=== PATIENT | female | born 1970 | race Caucasian/White ===

== ENCOUNTER 2018-04-25 13:28 | Inpatient (IN) | payer BC ==
[~2018-04-25 13:28] MED LIST: ISOVUE-370 76%-LOCM 1 ML ONE
[2018-04-25] MEDS ORDERED: Potassium Chloride 20 MEQ/100 ML PREMIX BAG ONE ×2 (14:44→21:57)
[2018-04-25] MEDS ORDERED: Morphine 4 MG/ML VIAL ONE ×2 (15:17→19:44)
[2018-04-25] MEDS ORDERED: Furosemide 20 MG/2 ML VIAL SLOW IVP SCH (16:45)
[2018-04-25] MEDS ORDERED: Morphine 2 MG/ML SYRINGE SLOW IVP PRN (16:46)
[2018-04-25] MEDS ORDERED: Ondansetron PF 4 MG/2 ML Vial IVP PRN (16:48)
[2018-04-25] MEDS ORDERED: Ondansetron ODT 4 MG TAB PO PRN (16:48)
[2018-04-25] MEDS ORDERED: Guaifenesin DM 100-10/5 ML UDCUP PO PRN (16:48)
[2018-04-25 17:08] LABS: Pregnancy Test - Urine (BHCG) Negative (Negative); Pregu Control Background? CLEAR/WHITE (CLR/WHITE); Pregu Control Bar Appear? YES (CONTROL BAR); Specific Gravity 1.015 (1.002-1.036)
--- NOTE | 2018-04-25 18:53 | HP ---
CHIEF COMPLAINT: Shortness of breath and abdominal pain. HISTORY OF PRESENT ILLNESS: Ms. Tan is a pleasant 47-year-old woman, transferred from [place], where she presented with increased shortness of breath and weakness for the last 3 days. Recently diagnosed with metastatic lung cancer to the liver 3 weeks [address] Lovett, and is awaiting paracentesis, liver bx and lung bx. Recently placed on "water tablets." However, the patient has not yet started it. CXR in the ED shows a right basilar infiltrate and small right pleural effusion. WCC normal. Has not been started on IV antibiotics as felt to have fluid due to cancer rather than infectious process. Morphine given due to abdominal pain. K+ 2.2, and replaced with 40 mEq of KCl. Patient having difficulty swallowing since yesterday. D-dimer elevated. LFTs are elevated and the direct bilirubin is slightly raised at 0.4. Her BNP is 563.6 and troponin 0.042. She was diagnosed after presenting with back pain and spine xrays showed an abnormal liver. CT imaging of the chest and abdomen, which revealed a 4 cm right lung mass and numerous liver lesions. REVIEW OF SYSTEMS: She denies having any fevers, chills, or sweats, but has felt generally unwell for the last week with increasing shortness of breath and orthopnea for the last 3 days. She has had reduced appetite. Denies having any nausea or vomiting. She has had abdominal discomfort and has felt bloated. She has noted bilateral lower leg swelling and pain. She reports having issues with constipation, which she attributed to decreased oral intake. Denies any diarrhea or melena. She is passing gas. Denies having any urinary symptoms such as dysuria , hematuria, urgency, or frequency. No headaches or dizziness. No rash or other skin changes. All other review of systems are negative. PAST MEDICAL HISTORY: 1. New presumed lung cancer with metastasis to the liver. 2. Depression. bed bug exterminator smoker. Previous drug user. 3. Anxiety. 4. Bipolar disorder. 5. Depression. 6. Schizophrenia. PAST SURGICAL HISTORY: Bilateral cataract surgery. ALLERGIES: NO KNOWN DRUG ALLERGIES. CURRENT MEDICATIONS: 1. Latuda 120 mg p.o. daily. 2. Viibryd 10 mg p.o. daily. 3. Propranolol 20 mg p.o. 3 times a day. 4. Perphenazine 4 mg p.o. t.i.d. 5. Alprazolam 0.25 mg p.o. p.r.n. 6. Tylenol with codeine 1 tablet p.o. p.r.n. 7. Bupropion 300 mg p.o. daily. 8. Trazodone 50 mg p.o. daily. 9. Spironolactone 50 mg p.o. daily. PHYSICAL EXAMINATION: GENERAL: The patient appears fatigued, but in no acute distress. Well developed and well nourished. VITAL SIGNS: Temperature 98.6, pulse 75, respirations 15, O2 saturation 97% on 2 L of oxygen per nasal cannula, and blood pressure 145/80. HEENT: Normocephalic and atraumatic. Pupils are equal, round, and reactive to light. Sclerae are without any icterus. Oropharynx is clear. NECK: Supple. LUNGS: With mild inspiratory wheeze in the right upper lung and reduced breath sounds at the bases bilaterally. CARDIAC: Regular rate and rhythm. ABDOMEN: Soft, mild distention, with diffuse discomfort on palpation. Increased discomfort with palpation of the right upper quadrant. Normal bowel sounds. No rigidity or guarding. EXTREMITIES: No swelling or edema. She did have calf tenderness bilaterally. NEUROLOGIC: Alert and oriented x3. SKIN: Without rash or jaundice. LABORATORY DATA: White blood count 5.9, hemoglobin 11.5, hematocrit 32.7, and platelets 84. PT 14.6, INR 1.1, and PTT 28.1. D-dimer 1.82. Sodium 146, potassium 2.2, anion gap 21, carbon dioxide 43, BUN 21, creatinine 1.03, and GFR 57. Lactic acid 1.4. Phosphorus 1.8, magnesium 1.6, calcium 10.1, direct bilirubin 0.4, total bilirubin 3.6, CK 175, AST 104, ALT 68, alkaline phosphatase 927, ammonia 46, CK -MB 4.9, and troponin 0.042. BNP 563.6. Lipase 72. Albumin 3.8. Urinalysis notable for trace ketones, 46 squamous epithelial cells, 1+ bacteria , and 7 to 10 hyaline casts. Plasma alcohol less than 10. IMAGING DATA: Chest x-ray notable for cardiac silhouette magnified and upper limits of normal in size. Pulmonary vasculature is unremarkable. Ill-defined opacity at the right lung base that obscures the lateral margin of the right hemidiaphragm with blunting of the right lateral costophrenic angle. Left lung clear. No evidence of pneumothorax. IMPRESSION AND PLAN: Ms. Tan is a pleasant 47-year-old woman, who is being admitted for management of the followin. Shortness of breath. Currently on 2 L of oxygen with a saturation of 97%. She is not normally on oxygen at home. Given the history of malignancy and elevated D- dimer as well as bilateral calf tenderness, Chest CTA requested. We will obtain an echo and we will start her on Lasix 20 mg IV daily. A consult has been placed with Pulmonology given her new right lung mass and changes concerning for pneumonitis on the chest x-ray. DuoNebs have been ordered. We will continue to monitor her O2 saturations. 2. Abdominal pain. Monitor LFTs and continue morphine 2 mg IV q.4 hours for pain. Due for liver biopsy early this upcoming week as well as a therapeutic and diagnostic paracentesis. We have placed a consultation with Gastroenterology. 3. Hypokalemia. She has been given potassium chloride 40 mEq IV in the ED. We will give an additional 40 mEq and continue to monitor her potassium. She is being admitted to telemetry. 4. Constipation. We will start the patient on MiraLAX. At this time, there are no signs or symptoms concerning for any obstruction. 5. Bipolar/depression. We will resume her home medications. 6. Lower extremity calf tenderness. As mentioned above, D-dimer was positive and the patient is awaiting CT chest angiogram. We will also obtain bilateral venous Doppler. 7. Decreased appetite. We have requested a dietitian consult. 8. Dysphagia. The patient mentioned one episode of choking on food as well as hoarseness that has developed in the last day. A bedside dysphagia screening has been requested. Of note, the patient is currently in the process of discussing advanced directives with her . She has indicated that he would be her decision maker. The patient would benefit from a Palliative Care consult given the new cancer diagnosis, complex decision-making, and goals of therapy once diagnosis has been established. The patient's case was discussed with Dr. Israel, who agrees with the plan of care as described above. Job ID: [id number] [facility]
--- NOTE | 2018-04-25 18:54 | CT ---
CTA CHEST 04/25/18 HISTORY: Elevated D-dimer, shortness of breath. Contrast enhanced CTA chest performed. 2D and 3D reconstructed images performed. The left hepatic lobe is markedly enlarged. There is some diffuse heterogeneity in the hepatic parenc hyma. This may represent some nodularity or possible diffuse infiltrative process. Correlate with noelle ctive MRI of liver. This may be normal or may represent diffuse infiltrative hepatic process. There is a small perihepatic amount of free fluid. There is interval development of a small right sided pleural effusion. There is a large right hilar mass measuring 4.7 x 5.3 cm enveloping the right lower lobe pulmonary ar florentino and right hilum. The mass extends and/or involves the subcarinal region and paratracheal area as well as the aortopulmonary window. This is concerning for extensive mediastinal metastatic disease. There is also some areas of newly developed consolidation relative to the previous CT involving the l ateral aspect of the right middle lobe. No evidence of filling defects seen in the pulmonary arteries to suggest pulmonary emboli. IMPRESSION: 1. Extensive right hilar mass with subcarinal, peritracheal and aortopulmonary window lymphadeno jacqui. 2. Heterogeneity seen in the liver with asymmetrically enlarged left hepatic lobe with asymmetri valente enlarged left hepatic lobe. Diffuse infiltrative hepatic process cannot be excluded. POS: LUDIN
[2018-04-25] MEDS ORDERED: LATUDA 60 MG PO SCH (21:00)
--- NOTE | 2018-04-25 21:37 | ULT ---
BILATERAL LOWER EXTREMITY VENOUS DOPPLER 04/25/18 HISTORY: Bilateral lower extremity swelling and calf tenderness. Multiple longitudinal and transverse images of the right and left lower extremity venous systems are obtained using a multihertz linear array transducer. Real time, color flow and spectral waveform dopp ler analysis demonstrates no evidence of acute or old clots seen in the right or left common femoral, superficial femoral, femora profunda, popliteal, posterior tibial vein, post trifurcation veins and right and left greater saphenous veins. IMPRESSION: No evidence of right or left lower extremity deep venous thrombosis. POS: ELLEN
[2018-04-25 21:55] LABS: Actual Bicarbonate (HCO3a) 43.4 mEq/L (22-28); Analyzer IN Cardio ER; Base Excess (BEa) 16.8 mEq/L (-2.0 to +3.0); Calcium, Ionized 1.13 mmol/L (1.12-1.30); Carboxyhemoglobin (COHb) 0.6 gm% (0.0-3.0); O2 Tension (PaO2) 94.5 mmHg (80.0-100.0); Potassium - ABG Lab 2.21 mmol/L (3.70-5.30); pH, Arterial 7.45 (7.35-7.45)
[2018-04-25 22:06] LABS: CO2 Tension 63.5 mmHg (35.0-45.0)
[2018-04-25 22:07] LABS: ALV-art Gradient 25.765 (0-20); Puncture Site RBA
[2018-04-25 22:22] LABS: BUN (Urea Nitrogen) 18 mg/dL (7.0-18.7); Calc. Creatinine Clearance 0 mL/min (70-130); Estimated GFR-MDRD 67
[2018-04-25 22:23] LABS: Calcium 9.9 mg/dL (7.8-10.44); Glucose 148 mg/dL (70-105); Magnesium 2.2 mg/dL (1.6-2.6)
[2018-04-25 22:27] LABS: Potassium 2.2 mmol/L (3.5-5.1)
[2018-04-25 22:31] LABS: Anion Gap 22 mmol/L (10-20); Carbon Dioxide 37 mmol/L (22-29); Chloride 88 mmol/L (98-107); Sodium 145 mmol/L (136-145)
[2018-04-26] MEDS ORDERED: Famotidine/PF 20 mg/2ml Vial ONE (00:20)
[2018-04-26] MEDS ORDERED: Potassium Chloride 20 MEQ/100 ML PREMIX BAG ONE ×2 (00:22→11:40)
[2018-04-26 04:26] LABS: ALT (SGPT) 59 U/L (8-55); AST (SGOT) 97 U/L (5-34); Albumin 3.6 g/dL (3.5-5.0); Alkaline Phosphatase 757 U/L (40-150); BUN (Urea Nitrogen) 18 mg/dL (7.0-18.7); Bilirubin, Total 3.9 mg/dL (0.2-1.2); Calc. Creatinine Clearance 0 mL/min (70-130); Calcium 10.4 mg/dL (7.8-10.44); Estimated GFR-MDRD 74; Globulin 2.6 g/dL (2.4-3.5); Glucose 124 mg/dL (70-105); Protein, Total 6.2 g/dL (6.0-8.3)
[2018-04-26] MEDS ORDERED: Morphine 2 MG/ML SYRINGE ONE (04:34)
[2018-04-26 04:37] LABS: Anion Gap 21 mmol/L (10-20); Carbon Dioxide 38 mmol/L (22-29); Chloride 91 mmol/L (98-107); Sodium 147 mmol/L (136-145)
[2018-04-26 04:50] LABS: Potassium 2.9 mmol/L (3.5-5.1)
[2018-04-26 05:36] LABS: #Lymphocytes 0.8 thou/uL (1.20-3.40); #Monocytes 0.2 thou/uL (0.11-0.59); #Neutrophils 3.2 thou/uL (1.40-6.50); %Basophils 0.2 % (0.0-1.0); %Eosinophils 0.7 % (0.0-10.0); %Lymphocytes 19.7 % (21.0-51.0); %Monocytes 4.4 % (0.0-10.0); %Neutrophils 75.1 % (42.0-75.0); Hemoglobin 10.4 g/dL (12.0-16.0); MDiff Complete? YES; Mean Corpuscular HGB CONC 31.5 g/dL (32.0-36.0); Mean Corpuscular Hemoglobin 31.3 pg (27.0-31.0); Mean Corpuscular Volume 99.6 fL (78.0-98.0); Mean Platelet Volume 8.9 fL (7.4-10.4); Platelet Count 77 thou/uL (130-400); Platelet Morphology Comment Appears Decreased; RBC Distribution Width 14.6 % (11.5-14.5); Red Blood Cell (RBC) Count 3.33 mill/uL (4.20-5.40); Stomatocytes SLIGHT = 2-5 cells (100X) (0-1/hpf); White Blood Cell (WBC) Count 4.2 thou/uL (4.8-10.8)
[2018-04-26 08:04] VITALS: BMI 24.3
[2018-04-26] MEDS ORDERED: Furosemide 20 MG/2 ML VIAL SLOW IVP SCH (09:00)
[2018-04-26] MEDS ORDERED: Ketorolac Tromethamine 30 MG/ML VIAL IVP PRN (09:44)
--- NOTE | 2018-04-26 09:46 | PDOC.PN ---
- Subjective Encounter Start Date: 04/26/18 Encounter Start Time: 09:00 -: old records requested/rev pt is c/o pain diffuse, she is getting echo, no family bedside, pt is appears confused, vitals stable - Objective MAR Reviewed: Yes Vital Signs & Weight: Vital Signs (12 hours) Pulse Resp Pulse Ox 04/26/18 07:03 99 04/26/18 07:00 105 H 34 H 99 Weight Weight 128 lb 11.999 oz Result Diagrams: 04/26/18 03:51 04/26/18 03:51 Radiology Reviewed by me: Yes (CTA noted) EKG Reviewed by me: Yes (nsr) Phys Exam - Physical Examination Constitutional: NAD HEENT: PERRLA, moist MMs, sclera anicteric Neck: no JVD, supple Respiratory: no wheezing, no rales, no rhonchi Cardiovascular: RRR, no significant murmur, no rub Gastrointestinal: soft, no distention, positive bowel sounds Musculoskeletal: no edema, pulses present Neurological: non-focal, moves all 4 limbs Lymphatic: no nodes Psychiatric: normal affect Skin: no rash, normal turgor Dx/Plan (1) Acute respiratory failure with hypoxia and hypercapnia Code(s): J96.01 - ACUTE RESPIRATORY FAILURE WITH HYPOXIA; J96.02 - ACUTE RESPIRATORY FAILURE WITH HYPERCAPNIA Status: Acute (2) Abnormal LFTs Code(s): R94.5 - ABNORMAL RESULTS OF LIVER FUNCTION STUDIES Status: Acute (3) Hypokalemia Code(s): E87.6 - HYPOKALEMIA Status: Acute (4) Metastatic primary lung cancer Code(s): C34.90 - MALIGNANT NEOPLASM OF UNSP PART OF UNSP BRONCHUS OR LUNG Status: Acute (5) Pancytopenia Code(s): D61.818 - OTHER PANCYTOPENIA Status: Acute (6) Anxiety and depression Code(s): F41.9 - ANXIETY DISORDER, UNSPECIFIED; F32.9 - MAJOR DEPRESSIVE DISORDER, SINGLE EPISODE, UNSPECIFIED Status: Chronic (7) Hypertension Code(s): I10 - ESSENTIAL (PRIMARY) HYPERTENSION Status: Chronic (8) Tobacco abuse Code(s): Z72.0 - TOBACCO USE Status: Chronic - Plan cont current plan of care * will replace potassium * continue respiratory therapy * pulmonary consulted * will consult oncology for lung cancer * monitor labs * medication reviewed as below * symptomatic treatment * check B12, folate and start oral folic acid and vitamin B12 * follow on echo result * will update family. Review of Systems - Review of Systems Eyes: negative: Pain, Vision Change, Conjunctivae Inflammation, Eyelid Inflammation, Redness, Other ENT: negative: Ear Pain, Ear Discharge, Nose Pain, Nose Discharge, Nose Congestion, Mouth Pain, Mouth Swelling, Throat Pain, Throat Swelling, Other Respiratory: negative: Cough, Dry, Shortness of Breath, Hemoptysis, SOB with Excertion, Pleuritic Pain, Sputum, Wheezing Cardiovascular: negative: chest pain, palpitations, orthopnea, paroxysmal nocturnal dyspnea, edema, light headedness, other Gastrointestinal: negative: Nausea, Vomiting, Abdominal Pain, Diarrhea, Constipation, Melena, Hematochezia, Other Genitourinary: negative: Dysuria, Frequency, Incontinence, Hematuria, Retention , Other - Medications/Allergies Allergies/Adverse Reactions: Allergies Allergy/AdvReac Type Severity Reaction Status Date / Time No Known Drug Allergies Allergy Verified 04/24/18 14:25 Medications: Current Medications Albuterol/Ipratropium (Duoneb) 3 ml NEB [id number] FOR[facility], [facility] Last Admin: 04/26/18 07:00 Dose: 3 ml Cyanocobalamin (Vitamin B-12) 1,000 mcg PO DAILY FOR[facility]LY [facility], [facility]1983 Famotidine (Pepcid) 20 mg SLOW IVP Q12HR FOR[facility], [facility]1983 Folic Acid (Folvite) 1 mg PO DAILY FOR[facility]1983 Guaifenesin/Dextromethorphan (Robitussin Dm) 15 ml PO Q4H PRN PRN Reason: Cough Potassium Chloride 20 meq/ (Device) 200 mls @ 100 mls/hr IVPB NOW FOR[facility]LY [facility]1983 Ketorolac Tromethamine (Toradol) 15 mg IVP Q6H PRN PRN Reason: Pain Stop: 05/01/18 09:45 Morphine Sulfate (Morphine) 4 mg SLOW IVP Q4H PRN PRN Reason: Moderate to Severe Pain (6-10) Nicotine (Nicoderm Patch) 14 mg TD Q24HR FOR[facility]1983 Ondansetron HCl (Zofran Odt) 4 mg PO Q6H PRN PRN Reason: Nausea/Vomiting Ondansetron HCl (Zofran) 4 mg IVP Q6H PRN PRN Reason: Nausea/Vomiting Perphenazine (Trilafon) 4 mg PO TID YAZMIN Polyethylene Glycol (Miralax) 17 gm PO DAILY YAZMIN Potassium Chloride (K-Dur) 40 meq PO BID-WM YAZMIN Propranolol HCl (Inderal) 20 mg PO TID YAZMIN Sodium Chloride (Flush - Normal Saline) 10 ml IVF Q12HR PRN PRN Reason: Saline Flush Sodium Chloride (Flush - Normal Saline) 10 ml IVF PRN PRN PRN Reason: Saline Flush
[2018-04-26] MEDS ORDERED: Morphine 4 MG/ML VIAL ONE (10:54)
[2018-04-26] MEDS: Perphenazine 2 MG TAB PO SCH ×4 (11:00→20:16)
[2018-04-26] MEDS: Nicotine 14 MG PATCH TD SCH ×2 (11:01→11:03)
[2018-04-26] MEDS: Propranolol 10 MG TAB PO SCH ×4 (11:03→20:15)
[2018-04-26] MEDS: Famotidine/PF 20 mg/2ml Vial SLOW IVP SCH ×3 (11:05→20:13)
[2018-04-26] MEDS: Polyethylene Glycol 3350 17 GM Packet PO SCH (11:05)
[2018-04-26] MEDS ORDERED: ALPRAZolam 0.25 MG TAB PO PRN (11:09)
[2018-04-26] MEDS ORDERED: traZODone HCl 50 MG TAB PO PRN (11:09)
[2018-04-26 11:43] LABS: Folate (Folic Acid) 9.5 ng/mL (7.0-31.4)
[2018-04-26] MEDS ORDERED: Morphine 4 MG/ML VIAL SLOW IVP PRN (11:45)
[2018-04-26] MEDS ORDERED: Potassium Chloride 20 MEQ in Premix Bag 1 BAG IVPB SCH (12:00)
[2018-04-26] MEDS ORDERED: PERPHENAZINE 4 MG PO SCH (15:00)
[2018-04-26] MEDS ORDERED: Propranolol 10 MG TAB PO SCH (15:00)
[2018-04-26 15:59] LABS: Actual Bicarbonate (HCO3a) 41.8 mEq/L (22-28); Base Excess (BEa) 15.8 mEq/L (-2.0 to +3.0); CO2 Tension 58.3 mmHg (35.0-45.0); Carboxyhemoglobin (COHb) 1.3 gm% (0.0-3.0); Hemoglobin (Hb) 11.2 g/dL (12.0-16.0); Potassium - ABG Lab 3.13 mmol/L (3.70-5.30); pH, Arterial 7.47 (7.35-7.45)
[2018-04-26 16:02] LABS: ALV-art Gradient 86.155 (0-20); Puncture Site RR
[2018-04-26] MEDS ORDERED: Potassium Chloride 20 MEQ TAB PO SCH (17:00)
[2018-04-26] MEDS ORDERED: Propofol 1,000 MG/100 ML VIAL IV ONE (18:03)
[2018-04-26] MEDS ORDERED: Midazolam HCl 2 mg/2 ml Vial ONE (18:03)
[2018-04-26] MEDS ORDERED: Sodium Chloride 0.9% 1,000 ML IV SCH (18:15)
--- NOTE | 2018-04-26 18:33 | CON ---
DATE OF CONSULTATION: 04/26/2018 SERVICE: Pulmonary Medicine. REASON FOR CONSULT: Pulmonary mass. HISTORY OF PRESENT ILLNESS: The patient is a 47-year-old white female with past medical history significant for new diagnosis of probable lung cancer. She was supposed to go for a biopsy tomorrow. That being said, she has been having increasing anxiety and agitation. Her family is being giving her some anxiolytic medications. She presented to the Emergency Department with increasing shortness of breath and some abdominal discomfort. In the emergency room, she was also given some pain medication. She got to the floor and she was having diffuse asterixis and unable to hold her head. An ABG was performed demonstrating some chronic hypercapnic respiratory failure. She is not able to provide much in the way of the history. She denies having any recent fevers, chills, cough, or sputum production. PAST MEDICAL HISTORY: 1. Lung cancer, presumed with widespread metastatic disease. 2. Major depressive disorder. 3. Anxiety disorder. 4. Bipolar disorder. 5. Schizophrenia. 6. Major depressive disorder. PAST SURGICAL HISTORY: Cataract surgery. ALLERGIES: NO KNOWN DRUG ALLERGIES. FAMILY HISTORY: Noncontributory. SOCIAL HISTORY: No exposures to illicit drugs. History of smoking. No significant alcohol abuse. MEDICATIONS: List of her inpatient and outpatient medications were reviewed. REVIEW OF SYSTEMS: At this point, the patient is encephalopathic, having a hard time providing review of systems for me. PHYSICAL EXAMINATION: VITAL SIGNS: Afebrile, pulse 95, blood pressure 180/81, respirations 24, saturation 95% on 3 L nasal cannula. GENERAL: The patient is intermittently somnolent. She has generalized asterixis. She appears to be in mild respiratory distress. HEENT: Normocephalic and atraumatic. Sclerae white. Conjunctivae pink. Oral mucosa is moist without lesions. There is a right supraclavicular lymph node, which can be appreciated. LUNGS: Excellent air entry. There is a prolonged expiratory phase. She has decreased air entry in the right lung compared to the left. No rhonchi or crackles. HEART: Normal rate. Regular. ABDOMEN: Soft. Tender to palpation. No rebound or guarding. Bowel sounds are present. MUSCULOSKELETAL: No cyanosis or clubbing. There is no pitting in the bilateral lower extremities. NEUROLOGIC: Grossly nonfocal. She is able to move her upper and lower extremities. Pupils are equal, round, and reactive. She demonstrates good strength, although she has intermittent release of tone. This is completely generalized to arms, legs, head, postural muscles. LABORATORY DATA: WBC 4.2, hemoglobin 10.4, platelets 77,000. Neutrophil 75%. PH 7.47, pCO2 of 58, pO2 of 62, on Ventimask with 31% FiO2, corresponding to saturation 92%. Alkaline phosphatase 557, AST and ALT are elevated. Vitamin B12 and folate fall within the normal limits. Creatinine 0.82, anion gap 21, bicarbonate 38, chloride 91, potassium 2.9, sodium 147. DIAGNOSTIC DATA: CT of the chest demonstrates no evidence of pulmonary embolism. There is a large right hilar mass and widespread mediastinal lymphadenopathy that tracks up into the right supraclavicular lymph node. There is a right-sided pleural effusion present. Apparently multiple liver lesions are noted had been described. Some ascites is also present, which does not appear to be terribly severe. ASSESSMENT: 1. Lung cancer, presumed. Widely metastatic. 2. Metabolic encephalopathy. 3. Liver disease. 4. Pancytopenia. 5. Elevated alkaline phosphatase. 6. Chronic hypercapnic respiratory failure. 7. Acute hypoxic respiratory failure. DISCUSSION AND PLAN: The patient is mostly suffering from a metabolic process. We will replace her potassium. She is clinically very dehydrated. As such, I will give her a liter of lactated Ringer's, and start her up at half-normal saline at 125 an hour. We will move her to the ICU. I will put her on BiPAP just to help with her work of breathing. I do not think that she is eminently going to be passing away from this condition. I do not think that she is about to go into respiratory failure, but I would like to identify the source of her asterixis metabolic process before she proceeds with any elective procedures. I think that the best course of action moving forward would be to get a biopsy of the supraclavicular lymph node on the left. This would be able to tell us what we are dealing with and stage her out completely without putting her through the risk of a liver biopsy, or endoscopic procedure. Pulmonary Critical Care will continue to follow along. 70 minutes have been devoted to this patient in various activities. I personally reviewed all imaging studies and laboratory data noted within this document. For fifty percent of this time, I was interacting with the patient at the bedside or coordinating care with the care team. For the remainder of the time I was immediately available to the patient in the hospital unit. Job ID: [id number] MTDD
[2018-04-26] MEDS ORDERED: Propofol BOLUS 1,000 MG/100 ML VIAL IV PRN (18:35)
[2018-04-26] MEDS: D5 1/2 NS w/20 mEq KCL 1,000 ML IV SCH ×2 (18:38→20:13)
[2018-04-26] MEDS ORDERED: Midazolam HCl 2 mg/2 ml Vial SLOW IVP SCH (18:45)
--- NOTE | 2018-04-26 18:56 | CON ---
DATE OF CONSULTATION: REASON FOR CONSULTATION: Metastatic cancer. HISTORY OF PRESENT ILLNESS: A 47-year-old female with extensive smoking history, transferred from [place], where she presented with worsening shortness of breath over the last few days. The patient is awake, but not alert and oriented at the moment, and history was obtained from the family at the bedside. Approximately 3 weeks ago, the patient began having worsening abdominal bloating and discomfort with pain in her back and presented to a physician for these complaints. Imaging showed an enlarged liver, and abdominal ultrasound at that time showed abnormal texture suggestive of an infiltrative process. CT scan done for evaluation showed a 4-cm right lung mass with multiple lesions throughout the liver suggestive of metastatic disease. The patient was seen by Dr. Lovett, who had scheduled her for paracentesis and biopsy of the liver upcoming; however, the patient has now presented to the hospital before this could be done. The patient was supposedly also waiting a lung biopsy. The states that he believes she may have been losing weight as her arms and legs are becoming more frail; however, her abdomen becoming more distended, so he is not sure. She began having nausea and vomiting within the last 24 hours. denies any hemoptysis, but does say she has had a worsening cough. The patient has a [id number] smoking history and is currently vaping. REVIEW OF SYSTEMS: Ten-point review of systems obtained through the as the patient is not currently lucid. PAST MEDICAL HISTORY: Tobacco abuse, previous drug user, depression, anxiety, bipolar, and schizophrenia. PAST SURGICAL HISTORY: Bilateral cataract surgery. ALLERGIES: NO KNOWN DRUG ALLERGIES. MEDICATIONS: Reviewed. PHYSICAL EXAMINATION: VITAL SIGNS: Pulse 93 to 109, respirations 21 to 34, saturating 92% on 2 L, blood pressure 156/84. GENERAL APPEARANCE: The patient appears very fatigued and altered, not able to stay awake at the bedside. HEENT: Normocephalic and atraumatic. No scleral icterus noted. NECK: Supple. LUNGS: Decreased breath sounds on the right side and at both bilateral bases. CARDIAC: S1 and S2. Regular rhythm and rate. ABDOMEN: Soft with mild distention and mild tenderness upon palpation. The patient was unable to lie down for this exam. EXTREMITIES: No edema. NEUROLOGIC: The patient is alert and awake, but does not appear oriented and is not lucid. SKIN: No jaundice or rash. LABORATORY DATA: White blood cells 4.2, hemoglobin 10.4, platelets 77. Sodium 147, potassium 2.9, chloride 91, carbon dioxide 38, anion gap 21, BUN 18, creatinine 0.82, total bilirubin 3.9, AST 97, ALT 59, alkaline phosphatase 757. Vitamin B12 of 1436. Folate 9.5. IMAGING DATA: CT angio of the chest with and without contrast shows a large right hilar mass measuring 4.7 x 5.3 cm enveloping the right lower lobe pulmonary artery and right hilum, and the mass extends and/or involves the subcarinal region and paratracheal area as well as the AP window concerning for extensive mediastinal metastatic disease. Heterogeneity seen in the liver with asymmetrically enlarged left hepatic lobe. Diffuse infiltrative hepatic process cannot be excluded. ASSESSMENT AND PLAN: A 47-year-old female with worsening abdominal distention and shortness of breath, found to have a large lung mass and associated metastatic disease in the liver. The patient has not had any biopsies done, however, is scheduled for lung biopsy, liver biopsy, and therapeutic and diagnostic paracentesis. Given likely diagnosis of lung cancer, the patient does require an MRI of the brain for screening, however, would also be diagnostic as the patient has been having dizziness for the last couple of days. The patient would require PET scan as an outpatient. Specific treatment would be dependent on final pathology. We will follow along with you and discuss with the patient and family treatment plans based on results of testing. Thank you for this consult. Job ID: [id number]
--- NOTE | 2018-04-26 19:03 | RAD ---
AP VIEW CHEST: 04/26/2018 HISTORY: Intubation. COMPARISON: 04/25/2018 FINDINGS: AP view chest demonstrates interval placement of nasogastric and endotracheal tubes. There is interval development of extensive air space opacities in both upper lobes, as well as much o f the right lower lobe and right middle lobe. These areas, for the most part, were not present. The right lower lobe area of opacity is slightly less pronounced. IMPRESSION: 1. Interval intubation of the patient. 2. Extensive bilateral increase in air space opacities, concerning for pulmonary edema or bilateral pneumonia. This appears to have significantly increased since the previous radiograph from 9. POS: [facility]
[2018-04-26] MEDS ORDERED: Bacteriostatic Water 30 ML VIAL FS PRN (19:18)
[2018-04-26] MEDS: methylPREDNISolone Sod Succ 40 MG VIAL IVP SCH (20:13)
[2018-04-26] MEDS: Piperacillin/Tazobactam 3.375 GM in Sodium Chloride 0.9% 100 ML IVPB SCH (20:14)
[2018-04-26] MEDS ORDERED: Non-Formulary Item 1 EACH (Lurasidone Hcl [Latuda] 60 MG) PO SCH (21:00)
[2018-04-26] MEDS: Propofol 1,000 MG/100 ML VIAL IV PRN (21:08)
[2018-04-26 22:32] LABS: Bilirubin Small (Negative); Blood, Urine Large (Negative); Clarity TURBID (Clear); Glucose, Urine (Dipstick) Negative (Negative); Leukocyte Negative (Negative); Nitrite Negative (Negative); Protein, Urine (Dipstick) 100 mg/dL (Neg-Trace)
[2018-04-26 22:34] LABS: Bacteria/HPF None Seen HPF (None Seen); Hyaline Casts/LPF 7-10 HYALINE CAST LPF (0-3 Hyaline); Pathc Cast-AUWi Flag 1.74 (0-2.49); RBC/HPF GREATER THAN 50-TNTC HPF (0-3)
[2018-04-26 22:38] LABS: Crystals/HPF 4+ AMORPH URATES HPF (Negative); Urine Culture Reflex No No
[2018-04-26 22:50] VITALS: BP 147/87
--- NOTE | 2018-04-27 00:39 | CON ---
DATE OF CONSULTATION: 04/26/2018 HISTORY OF PRESENT ILLNESS: Ms. Tan is a 47-year-old woman, who was admitted yesterday with a confusing history. She has no family with her at this point, so I am dependent on the chart. Reading the hospital admission note, it states that she has a recent diagnosis of lung cancer, although there is no pathologic specimen or diagnosis within the [facility] system. She was seen by Dr. Lovett recently and was going to undergo a paracentesis and liver biopsy. She presented with shortness of breath and weakness. She is currently encephalopathic in the ICU on BiPAP and may end up requiring intubation soon. Dr. Ferro asked me to see her in regard to a left supraclavicular node to be biopsied for diagnosis. I reviewed her CT scans and also on exam, and I cannot palpate a node that I feel is biopsiable in her neck or supraclavicular fossa. A dedicated soft tissue CT scan of her neck may be useful in helping to define any of the nodes that may be biopsiable. As with her movement currently, I cannot feel a biopsiable node. PAST MEDICAL HISTORY: 1. Long-term tobacco abuse and drug abuse. 2. Bipolar disorder. 3. Anxiety. 4. Depression. 5. Schizophrenia. PAST SURGICAL HISTORY: Bilateral cataract surgery. ALLERGIES: NONE. CURRENT MEDICATIONS: Noted. PHYSICAL EXAMINATION: GENERAL: Initially, she was lying flaccid in bed while her Ferreira was being placed on BiPAP, but she is now awake and thrashing in the bed. She easily settles with verbal communication. VITAL SIGNS: Height 5 feet 1 inch, weight is 128 pounds, temperature is 97.8, pulse is 110 and regular, blood pressure is 190/110. HEENT: Sclerae are icteric. NECK: Supple. I cannot palpate any nodes. CHEST: She has short gaspy respirations. HEART: Rhythm is regular. ABDOMEN: Protuberant. She has easily palpable liver margin that extends much lower than expected in her abdomen. EXTREMITIES: No edema. ASSESSMENT AND PLAN: This is an unfortunate encephalopathic woman, who may have metastatic process. Her liver and abdomen are obviously abnormal, and this may be the best and easiest method for biopsy. She has not had coagulation studies checked. If she is able to settle, we need to readdress her neck. I would recommend a dedicated neck soft tissue CT scan to evaluate any juan manuel tissue and we can certainly proceed from there. Job ID: [id number]
[2018-04-27] MEDS: Piperacillin/Tazobactam 3.375 GM in Sodium Chloride 0.9% 100 ML IVPB SCH ×4 (02:35→19:50)
[2018-04-27] MEDS: methylPREDNISolone Sod Succ 40 MG VIAL IVP SCH ×4 (02:35→19:50)
--- NOTE | 2018-04-27 03:31 | OP ---
DATE OF PROCEDURE: 04/26/2018 SERVICE: Pulmonary Medicine. PROCEDURE PERFORMED: Emergent endotracheal intubation. CONSENT: Procedure was performed emergently secondary to clinical deterioration and respiratory failure. STAFF PHYSICIAN: Corwin Ferro MD. MEDICATIONS USED: Versed 2 mg IV push. PREPROCEDURE DIAGNOSES: 1. Acute hypoxic and hypercapnic respiratory failure. 2. Encephalopathy. POSTPROCEDURE DIAGNOSES: 1. Acute hypoxic and hypercapnic respiratory failure. 2. Metabolic encephalopathy. DESCRIPTION OF PROCEDURE: Vital sign monitoring was accomplished by noninvasive hemodynamic monitoring, pulse oximetry, and telemetry. In the supine position, the patient was preoxygenated with [id number] ventilation and maintained with saturations of 98%. Following induction of anesthesia, a #3 GlideScope was inserted through the mouth offering clear identification of the posterior oropharynx and laryngeal structures with a grade 1 view. A 7.5-Bulgarian endotracheal tube was visualized passing through the vocal cords. Placement was confirmed by condensation in the endotracheal tube and bi-axillary chest auscultation. Endotracheal tube was secured at 23 cm, measured at the teeth. The patient was placed on mechanical ventilation with good return of volumes. Postprocedure x-ray demonstrated good location for the endotracheal tube. ESTIMATED BLOOD LOSS: None. COMPLICATIONS: None. Job ID: [id number]
[2018-04-27] MEDS: Propofol 1,000 MG/100 ML VIAL IV PRN ×4 (05:30→23:18)
[2018-04-27 06:14] LABS: INR-International Normal Ratio 1.3; Prothrombin Time 15.8 SEC (12.0-14.7)
[2018-04-27 06:36] LABS: Band 2 % (5-11); Hemoglobin 11.1 g/dL (12.0-16.0); Hypochromia SLIGHT = 6-15 cells (100X) (0-5/hpf); Lymphocytes 46 % (21-51); MDiff Complete? YES; Mean Corpuscular HGB CONC 32.7 g/dL (32.0-36.0); Mean Corpuscular Hemoglobin 32.3 pg (27.0-31.0); Mean Corpuscular Volume 98.5 fL (78.0-98.0); Mean Platelet Volume 9.4 fL (7.4-10.4); Monocytes 28 % (0-10); Neutrophil 24 % (42-75); Platelet Count 31 thou/uL (130-400); Platelet Morphology Comment Appears Adequate; RBC Distribution Width 15.4 % (11.5-14.5); Red Blood Cell (RBC) Count 3.45 mill/uL (4.20-5.40); White Blood Cell (WBC) Count 3.3 thou/uL (4.8-10.8)
[2018-04-27 06:43] LABS: ALT (SGPT) 77 U/L (8-55); AST (SGOT) 140 U/L (5-34); Alkaline Phosphatase 593 U/L (40-150); Anion Gap 22 mmol/L (10-20); BUN (Urea Nitrogen) 23 mg/dL (7.0-18.7); Bilirubin, Total 5.2 mg/dL (0.2-1.2); Calc. Creatinine Clearance 69 mL/min (70-130); Calcium 10.1 mg/dL (7.8-10.44); Carbon Dioxide 31 mmol/L (22-29); Chloride 99 mmol/L (98-107); Estimated GFR-MDRD 66; Globulin 3.5 g/dL (2.4-3.5); Glucose 130 mg/dL (70-105); Potassium 4.5 mmol/L (3.5-5.1); Protein, Total 6.5 g/dL (6.0-8.3); Sodium 147 mmol/L (136-145)
[2018-04-27] MEDS ORDERED: Cyanocobalamin (Vitamin B-12) 1,000 MCG TAB PO SCH (09:00)
[2018-04-27] MEDS ORDERED: Bupropion 150 MG XL TAB PO SCH (09:00)
[2018-04-27] MEDS ORDERED: Folic Acid 1 MG TAB PO SCH (09:00)
[2018-04-27] MEDS ORDERED: VILAZODONE HCL PO SCH (09:00)
[2018-04-27] MEDS: Propranolol 10 MG TAB PO SCH ×2 (09:37→15:34)
[2018-04-27] MEDS: Famotidine/PF 20 mg/2ml Vial SLOW IVP SCH (09:37)
[2018-04-27] MEDS: Perphenazine 2 MG TAB PO SCH (09:38)
[2018-04-27] MEDS: Polyethylene Glycol 3350 17 GM Packet PO SCH (09:41)
[2018-04-27] MEDS ORDERED: Fentanyl BOLUS 250 ML IVPB PRN (10:08)
[2018-04-27] MEDS ORDERED: Propofol BOLUS 1,000 MG/100 ML VIAL IV PRN (10:08)
[2018-04-27] MEDS ORDERED: Propofol 1,000 MG/100 ML VIAL IV PRN (10:08)
[2018-04-27] MEDS ORDERED: DISCONTINUE PREVIOUS NARCOTIC PAIN MEDICATIONS AND BENZODIAZEPINES FS SCH (10:08)
[2018-04-27] MEDS ORDERED: fentaNYL Citrate/PF 2,000 MCG in Sodium Chloride 0.9% 60 ML IV SCH (10:08)
[2018-04-27] MEDS ORDERED: Morphine 2 MG/ML SYRINGE SLOW IVP PRN (10:08)
[2018-04-27] MEDS: Lorazepam 2 MG/ML VIAL SLOW IVP PRN (10:28)
--- NOTE | 2018-04-27 10:58 | ULT ---
ULTRASOUND ABDOMEN LIMITED: Date: 04/27/18 HISTORY: Evaluate for ascites. COMPARISON: None. FINDINGS: There is a very trace amount of ascites, not a candidate for paracentesis. Layering right pleural eff usion. IMPRESSION: Trace ascites. POS: [facility]
--- NOTE | 2018-04-27 11:58 | PDOC.PN ---
- Subjective Encounter Start Date: 04/27/18 Encounter Start Time: 09:00 -: old records requested/rev last night pt seems aspirated and required intubation, this morning pt was gasping for air, she is not doing well even on vent., family bedside - Objective Resuscitation Status - Order Detail: 04/27/18 11:28 Resuscitation Status Routine Resuscitation Status: DNAR: NO Resuscitation Discussed with: discussed wtih JONO Reviewed: Yes Vital Signs & Weight: Vital Signs (12 hours) Temp Pulse 04/27/18 10:23 105 H 04/27/18 06:50 91 04/27/18 04:00 97.9 F 04/27/18 03:20 92 04/27/18 00:00 97.7 F Weight Admit Weight 128 lb 11.984 oz Weight 128 lb 11.999 oz Most Recent Monitor Data Heart Rate from ECG 86 NIBP 116/71 NIBP BP-Mean 86 Respiration from ECG 21 SpO2 91 I&O: 04/26/18 04/27/18 04/28/18 06:59 06:59 06:59 Intake Total 2995 Output Total 460 Balance 2535 Result Diagrams: 04/27/18 05:11 04/27/18 05:11 Radiology Reviewed by me: Yes (chest xray reviewed) EKG Reviewed by me: Yes (nsr) Phys Exam - Physical Examination Constitutional: NAD on vent resp distresss HEENT: PERRLA Neck: no JVD, supple bilateral coarse sound+ Cardiovascular: RRR, no significant murmur, no rub Gastrointestinal: soft, no distention, positive bowel sounds Musculoskeletal: no edema, pulses present unable to assess due to intubated status Lymphatic: no nodes Deviation from normal: unable to assess Skin: no rash, normal turgor Dx/Plan (1) Acute metabolic encephalopathy Code(s): G93.41 - METABOLIC ENCEPHALOPATHY Status: Acute (2) Acute respiratory failure with hypoxia and hypercapnia Code(s): J96.01 - ACUTE RESPIRATORY FAILURE WITH HYPOXIA; J96.02 - ACUTE RESPIRATORY FAILURE WITH HYPERCAPNIA Status: Acute (3) Abnormal LFTs Code(s): R94.5 - ABNORMAL RESULTS OF LIVER FUNCTION STUDIES Status: Acute (4) Hypokalemia Code(s): E87.6 - HYPOKALEMIA Status: Acute (5) Metastatic primary lung cancer Code(s): C34.90 - MALIGNANT NEOPLASM OF UNSP PART OF UNSP BRONCHUS OR LUNG Status: Acute (6) Pancytopenia Code(s): D61.818 - OTHER PANCYTOPENIA Status: Acute (7) Anxiety and depression Code(s): F41.9 - ANXIETY DISORDER, UNSPECIFIED; F32.9 - MAJOR DEPRESSIVE DISORDER, SINGLE EPISODE, UNSPECIFIED Status: Chronic (8) Hypertension Code(s): I10 - ESSENTIAL (PRIMARY) HYPERTENSION Status: Chronic (9) Tobacco abuse Code(s): Z72.0 - TOBACCO USE Status: Chronic (10) Aspiration pneumonia Code(s): J69.0 - PNEUMONITIS DUE TO INHALATION OF FOOD AND VOMIT Status: Acute - Plan cont current plan of care, plan discussed w/ family, continue antibiotics, respiratory therapy * spoke with and entire family about current status and prognosis * spoke with them in details and answered all their questions * his agreed with DNR * her prognosis is very poor * will consult palliative care * will try to treat aggressively medically without any CPR for another 24-48 hours to see how see does and then will discuss with family about further options * currently unstable to do any more investigation. Review of Systems - Review of Systems Other: unable to review due to intubated status - Medications/Allergies Allergies/Adverse Reactions: Allergies Allergy/AdvReac Type Severity Reaction Status Date / Time No Known Drug Allergies Allergy Verified 04/24/18 14:25 Medications: Current Medications Albuterol/Ipratropium (Duoneb) 3 ml NEB [id number] [facility] Last Admin: 04/27/18 06:49 Dose: 3 ml Bupropion HCl (Wellbutrin Xl) 300 mg PO DAILY [facility] Last Admin: 04/27/18 09:41 Dose: Not Given Cyanocobalamin (Vitamin B-12) 1,000 mcg PO DAILY [facility] Last Admin: 04/27/18 09:48 Dose: 1,000 mcg Famotidine (Pepcid) 20 mg SLOW IVP Q12HR [facility] Last Admin: 04/27/18 09:37 Dose: 20 mg Folic Acid (Folvite) 1 mg PO DAILY [facility] Last Admin: 04/27/18 09:37 Dose: 1 mg Piperacillin Sod/Tazobactam (Sod 3.375 gm/ Sodium Chloride) 100 mls @ 200 mls/ hr IVPB 0200,0800,1400,2000 [facility] Last Admin: 04/27/18 09:35 Dose: 100 mls Fentanyl Citrate 2,000 mcg/ (Sodium Chloride) 100 mls @ 0 mls/hr IV INF [facility]; Protocol Stop: 05/27/18 10:08 Fentanyl Citrate (Fentanyl Bolus) 250 mls @ 0 mls/hr IVPB PRN PRN PRN Reason: Breakthrough pain/agitation Stop: 05/27/18 10:08 Ketorolac Tromethamine (Toradol) 15 mg IVP Q6H PRN PRN Reason: Pain Stop: 05/01/18 09:45 Last Admin: 04/26/18 13:39 Dose: 15 mg Lactulose (Lactulose) 30 gm PO BID [facility] Last Admin: 04/27/18 09:34 Dose: 30 gm Lorazepam (Ativan) 2 mg SLOW IVP Q1H PRN PRN Reason: Breakthrough agitation Stop: 05/27/18 10:08 Last Admin: 04/27/18 10:28 Dose: 2 mg Methylprednisolone Sodium Succinate (Solu-Medrol) 40 mg IVP 0200,0800,1400, 1999 [facility] Last Admin: 04/27/18 09:35 Dose: 40 mg Morphine Sulfate (Morphine) 2 mg SLOW IVP Q1H PRN PRN Reason: BREAKTHROUGH PAIN/Agitation Stop: 05/27/18 10:08 Discontinue Previous Narcotic Pain Medications And Benzodiazepines 1 each FS .ONE [facility] Stop: 05/27/18 10:08 Ondansetron HCl (Zofran Odt) 4 mg PO Q6H PRN PRN Reason: Nausea/Vomiting Ondansetron HCl (Zofran) 4 mg IVP Q6H PRN PRN Reason: Nausea/Vomiting Perphenazine (Trilafon) 4 mg PO TID [facility] Last Admin: 04/27/18 09:38 Dose: 4 mg Polyethylene Glycol (Miralax) 17 gm PO DAILY [facility] Last Admin: 04/27/18 09:41 Dose: 17 gm Propofol (Diprivan) 1,000 mg IV INF PRN; Protocol PRN Reason: TO ACHIEVE GOAL RASS Stop: 05/26/18 18:35 Last Admin: 04/27/18 10:10 Dose: 1,000 mg Propofol (Diprivan) 1,000 mg IV INF PRN; Protocol PRN Reason: TO ACHIEVE GOAL RASS Stop: 05/27/18 10:08 Propofol (Diprivan Bolus) 20 mg IV Q5MIN PRN PRN Reason: BREAKTHROUGH AGITATION Stop: 05/27/18 10:08 Propranolol HCl (Inderal) 20 mg PO TID [facility] Last Admin: 04/27/18 09:37 Dose: 20 mg Sodium Chloride (Flush - Normal Saline) 10 ml IVF Q12HR PRN PRN Reason: Saline Flush Sodium Chloride (Flush - Normal Saline) 10 ml IVF PRN PRN PRN Reason: Saline Flush Sterile Water (Bacteriostatic Water) 1 ml FS PRN PRN PRN Reason: RECONSTITUTION
[2018-04-27] MEDS ORDERED: Dextrose 5% in Water 1,000 ML IV SCH (14:00)
--- NOTE | 2018-04-27 14:42 | PRG ---
DATE OF SERVICE: 04/27/2018 SERVICE: Pulmonary Medicine. INTERVAL HISTORY: The patient is doing poorly from respiratory standpoint. Oxygen requirements are going up. She cannot provide any additional elements of the history. Her numbers look okay. That being said, she looks absolutely terrible at bedside. She is doing something that appears to be guppy breathing. Her gas exchange, however, appears to be adequate. She cannot provide any additional elements of the history and she remains completely encephalopathic. She does spontaneously move all 4 extremities. She does have some purposeful activity. PHYSICAL EXAMINATION: VITAL SIGNS: Afebrile, pulse 93, blood pressure 119/77, respirations 21, saturation 91% on 80% FiO2 and a PEEP of 7. GENERAL: The patient is intubated and sedated. HEENT: Normocephalic and atraumatic. Sclerae white. Conjunctivae pink. Oral mucosa is moist without lesions. LUNGS: Very poor air entry. Crackles are present throughout bilateral lung reyes as well as rhonchi. There is a very prolonged expiratory phase. Wheezing is also appreciated. HEART: Normal rate. Regular. ABDOMEN: Soft, nontender. It is distended. The liver edges are easily palpated. Bowel sounds are hypoactive. GENITOURINARY: Ferreira catheter in place. NEUROLOGIC: Grossly nonfocal. LABORATORY DATA: WBC 3.3, hemoglobin 11.1, platelets 31,000 and dropping rapidly. Neutrophil count is 24% on top of 2% bands. Monocyte, and lymphocyte count predominate. INR 1.3. PH 7.47, pCO2 of 58, pO2 of 63. AST and ALT are gently trending upward, bilirubin 5.2 and precipitously going up. Ammonia is elevated, liver function studies are otherwise unremarkable. Vitamin B12 and folate are normal. Potassium is excellent at 4.5, sodium 147. Anion gap is 22, bicarb 31. Urinalysis is positive for red blood cells and white blood cells. There is small amount of bilirubin, blood, and protein. Respiratory cultures are unremarkable to date. IMAGING DATA: Ultrasound of the abdomen demonstrates trace ascites. Layering right pleural effusion is also appreciated. ASSESSMENT: 1. Acute hypoxic and hypercapnic respiratory failure. 2. Advanced liver disease secondary to likely metastatic process. 3. Lung cancer, presumed. 4. Metabolic encephalopathy. 5. Pancytopenia. DISCUSSION AND PLAN: The patient is doing absolutely terrible from a respiratory standpoint. I am going to repeat a chest x-ray and an ABG. We will also start to introduce a very low rate of free water to prevent her sodium from trending upward to a significant degree. She is not acidotic based on her most recent ABG. Truth be told, the numbers do not look terrible, but at bedside, the patient does not look good. After having a discussion with the patient's family, they have elected to transition over to making her a DNR. We will do everything we can to recover her, but short of chest compressions. If her heart were to give out, no medications, compressions, or cardioversion will be performed. At this point, she is simply too sick to leave the ICU to pursue any studies, or diagnostic procedures. Critical care time: 30 minutes. Job ID: [id number] MTDD
--- NOTE | 2018-04-27 15:08 | RAD ---
PORTABLE AP CHEST X-RAY: 04/27/2018 HISTORY: Increasing oxygen requirements. COMPARISON: 04/26/2018 FINDINGS: Endotracheal tube and nasogastric tube remain in place. There are increased interstitial and alveola r opacities seen diffusely throughout the lungs bilaterally, greatest in the left upper lung zone at the right lung base. The findings in the left lung have increased from the prior exam. These findin gs are significantly increased when compared to the study on 04/25/2018. IMPRESSION: Findings suggesting asymmetric pulmonary edema, which has worsened when compared to the prior study. The lungs were clear on the study of 04/25/2018. An infectious process is a differential considerat ion. POS: [facility]
[2018-04-28] MEDS: methylPREDNISolone Sod Succ 40 MG VIAL IVP SCH ×2 (01:00→08:30)
[2018-04-28] MEDS: Piperacillin/Tazobactam 3.375 GM in Sodium Chloride 0.9% 100 ML IVPB SCH ×2 (01:00→08:30)
[2018-04-28 04:08] LABS: Lactic Acid 5.3 mmol/L (0.5-2.2)
[2018-04-28 07:05] LABS: Actual Bicarbonate (HCO3a) 35.9 mEq/L (22-28); Base Excess (BEa) 10.8 mEq/L (-2.0 to +3.0); CO2 Tension 51.2 mmHg (35.0-45.0); Calcium, Ionized 1.37 mmol/L (1.12-1.30); Carboxyhemoglobin (COHb) 0.6 gm% (0.0-3.0); Hemoglobin (Hb) 10.2 g/dL (12.0-16.0); O2 Tension (PaO2) 69.3 mmHg (80.0-100.0); Potassium - ABG Lab 3.49 mmol/L (3.70-5.30); pH, Arterial 7.46 (7.35-7.45)
[2018-04-28 07:06] LABS: Puncture Site RRA
--- NOTE | 2018-04-28 08:23 | RAD ---
PORTABLE CHEST: 04/28/2018 PROVIDED CLINICAL HISTORY: Respiratory insufficiency. COMPARISON: 04/27/2018 FINDINGS: Significant interval change with respect to the prior examination is not apparent. IMPRESSION: As above. POS: [facility]
[2018-04-28] MEDS: Polyethylene Glycol 3350 17 GM Packet PO SCH (08:32)
[2018-04-28] MEDS: Propofol 1,000 MG/100 ML VIAL IV PRN (09:00)
[2018-04-28] MEDS ORDERED: Famotidine/PF 20 mg/2ml Vial SLOW IVP SCH (09:00)
--- NOTE | 2018-04-28 10:39 | PDOC.PN ---
- Subjective Encounter Start Date: 04/28/18 Encounter Start Time: 09:20 pt is still overall not doing well on vent, Patient seen and examined. No overnight events - Objective Resuscitation Status - Order Detail: 04/27/18 11:28 Resuscitation Status Routine Resuscitation Status: DNAR: NO Resuscitation Discussed with: discussed wtih JONO Reviewed: Yes Vital Signs & Weight: Vital Signs (12 hours) Temp Pulse Resp Pulse Ox 04/28/18 10:00 19 04/28/18 08:00 16 91 L 04/28/18 07:13 101.9 F H 04/28/18 07:02 105 H 04/28/18 06:00 16 04/28/18 04:00 100.7 F H 16 04/28/18 02:00 16 04/28/18 00:00 99.0 F 16 04/27/18 23:21 97 16 91 L Weight Admit Weight 128 lb 11.984 oz Weight 128 lb 11.999 oz Most Recent Monitor Data Heart Rate from ECG 113 NIBP 121/77 NIBP BP-Mean 91 Respiration from ECG 17 SpO2 90 I&O: 04/27/18 04/28/18 04/29/18 06:59 06:59 06:59 Intake Total 2995 1814.8 Output Total 460 875 218 Balance 2535 939.8 -218 Result Diagrams: 04/27/18 05:11 04/27/18 05:11 Radiology Reviewed by me: Yes (chest xray reviewed) EKG Reviewed by me: Yes (nsr) Phys Exam - Physical Examination Constitutional: NAD on vent Neck: no JVD, supple Respiratory: wheezing present bilateral coarse sound Cardiovascular: RRR, no significant murmur, no rub Gastrointestinal: soft, positive bowel sounds Musculoskeletal: edema present Lymphatic: no nodes Skin: normal turgor Dx/Plan (1) Acute metabolic encephalopathy Code(s): G93.41 - METABOLIC ENCEPHALOPATHY Status: Acute (2) Acute respiratory failure with hypoxia and hypercapnia Code(s): J96.01 - ACUTE RESPIRATORY FAILURE WITH HYPOXIA; J96.02 - ACUTE RESPIRATORY FAILURE WITH HYPERCAPNIA Status: Acute (3) Abnormal LFTs Code(s): R94.5 - ABNORMAL RESULTS OF LIVER FUNCTION STUDIES Status: Acute (4) Hypokalemia Code(s): E87.6 - HYPOKALEMIA Status: Acute (5) Metastatic primary lung cancer Code(s): C34.90 - MALIGNANT NEOPLASM OF UNSP PART OF UNSP BRONCHUS OR LUNG Status: Acute (6) Pancytopenia Code(s): D61.818 - OTHER PANCYTOPENIA Status: Acute (7) Anxiety and depression Code(s): F41.9 - ANXIETY DISORDER, UNSPECIFIED; F32.9 - MAJOR DEPRESSIVE DISORDER, SINGLE EPISODE, UNSPECIFIED Status: Chronic (8) Hypertension Code(s): I10 - ESSENTIAL (PRIMARY) HYPERTENSION Status: Chronic (9) Tobacco abuse Code(s): Z72.0 - TOBACCO USE Status: Chronic (10) Aspiration pneumonia Code(s): J69.0 - PNEUMONITIS DUE TO INHALATION OF FOOD AND VOMIT Status: Acute - Plan cont current plan of care, continue antibiotics, respiratory therapy * medication reviewed as below * symptomatic treatment * continue IV zosyn * continue solumedrol * prognosis is poor * continue current aggressive medical care * palliative care on case * may be hospice candidate. Review of Systems - Review of Systems Other: unable to review due to intubated status - Medications/Allergies Allergies/Adverse Reactions: Allergies Allergy/AdvReac Type Severity Reaction Status Date / Time No Known Drug Allergies Allergy Verified 04/24/18 14:25 Medications: Current Medications Albuterol/Ipratropium (Duoneb) 3 ml NEB [id number] [facility] Last Admin: 04/28/18 07:01 Dose: 3 ml Famotidine (Pepcid) 20 mg SLOW IVP DAILY [facility] Last Admin: 04/28/18 08:31 Dose: 20 mg Piperacillin Sod/Tazobactam (Sod 3.375 gm/ Sodium Chloride) 100 mls @ 200 mls/ hr IVPB 0200,0800,1400,2000 [facility] Last Admin: 04/28/18 08:30 Dose: 100 mls Fentanyl Citrate 2,000 mcg/ (Sodium Chloride) 100 mls @ 0 mls/hr IV INF [facility]; Protocol Stop: 05/27/18 10:08 Last Admin: 04/27/18 11:56 Dose: 100 mls Fentanyl Citrate (Fentanyl Bolus) 250 mls @ 0 mls/hr IVPB PRN PRN PRN Reason: Breakthrough pain/agitation Stop: 05/27/18 10:08 Dextrose/Water (D5w) 1,000 mls @ 40 mls/hr IV .Q24H [facility] Last Admin: 04/27/18 14:55 Dose: 1,000 mls Lactulose (Lactulose) 30 gm PO TID [facility] Last Admin: 04/28/18 08:31 Dose: 30 gm Lorazepam (Ativan) 2 mg SLOW IVP Q1H PRN PRN Reason: Breakthrough agitation Stop: 05/27/18 10:08 Last Admin: 04/27/18 10:28 Dose: 2 mg Methylprednisolone Sodium Succinate (Solu-Medrol) 40 mg IVP 0200,0800,1400, 2000 [facility] Last Admin: 04/28/18 08:30 Dose: 40 mg Discontinue Previous Narcotic Pain Medications And Benzodiazepines 1 each FS .ONE [facility] Stop: 05/27/18 10:08 Ondansetron HCl (Zofran Odt) 4 mg PO Q6H PRN PRN Reason: Nausea/Vomiting Ondansetron HCl (Zofran) 4 mg IVP Q6H PRN PRN Reason: Nausea/Vomiting Polyethylene Glycol (Miralax) 17 gm PO DAILY [facility] Last Admin: 04/28/18 08:32 Dose: 17 gm Propofol (Diprivan) 1,000 mg IV INF PRN; Protocol PRN Reason: TO ACHIEVE GOAL RASS Stop: 05/26/18 18:35 Last Admin: 04/28/18 09:00 Dose: 1,000 mg Propofol (Diprivan) 1,000 mg IV INF PRN; Protocol PRN Reason: TO ACHIEVE GOAL RASS Stop: 05/27/18 10:08 Propofol (Diprivan Bolus) 20 mg IV Q5MIN PRN PRN Reason: BREAKTHROUGH AGITATION Stop: 05/27/18 10:08 Sodium Chloride (Flush - Normal Saline) 10 ml IVF Q12HR PRN PRN Reason: Saline Flush Sodium Chloride (Flush - Normal Saline) 10 ml IVF PRN PRN PRN Reason: Saline Flush Sterile Water (Bacteriostatic Water) 1 ml FS PRN PRN PRN Reason: RECONSTITUTION
[2018-04-28 11:05] VITALS: TEMP 100.7
[2018-04-28] MEDS ORDERED: Morphine 2 MG/ML SYRINGE SLOW IVP PRN (11:32)
[2018-04-28] MEDS ORDERED: Lorazepam 2 MG/ML VIAL SLOW IVP PRN (11:33)
--- NOTE | 2018-04-28 12:40 | PRG ---
DATE OF SERVICE: 04/28/2018 SERVICE: Pulmonary Medicine. INTERVAL HISTORY: The patient is doing fairly poorly from a respiratory standpoint. Oxygen requirements are extremely high. She is on 7 of PEEP. With reduction in sedation, she spontaneously moves all 4 extremities. Otherwise, there has been no interval improvement. The family has decided that she would not want these types of interventions. As such, they elected to proceed with compassionate extubation. I do not know where this was coming from, but apparently was driven from the himself. He is the power of rn lactation, and close next of kin. She does not have an advance directive present. He understands that there is a possibility that we could be dealing with a small cell lung cancer that could be exquisitely insensitive to chemotherapy. If that is what we are dealing with, and she got appropriate therapy, there is a possibility over the next couple of days and weeks, things could improve dramatically to the point where she would have some degree of recovery. That being said, under those circumstances, he appreciates that if it were small cell lung cancer, her life would still be limited to 9 months to a year. He is indicating that based on what she would want, she would not want to go through this process, just have to pass away at some point in the fairly near future. As such, he thinks it will be in keeping with her values to proceed with compassionate extubation at this point. As such, we will go ahead and make those arrangements. When the family is ready, she will be extubated. Comfort medications will be provided. PHYSICAL EXAMINATION: VITAL SIGNS: T-max 101.9, pulse 114, blood pressure 137/82, respirations 17, saturation 93% on 80% FiO2 and a PEEP of 7. GENERAL: The patient intubated and sedated. HEENT: Normocephalic and atraumatic. Sclerae white. Conjunctivae pink. Oral mucosa is moist without lesions. LUNGS: Rhonchi, wheezing, and crackles are all present. There is decent air entry. HEART: Tachycardic. Regular. ABDOMEN: Soft, distended. Liver is palpable. Bowel sounds are present. GENITOURINARY: Ferreira catheter in place. MUSCULOSKELETAL: No cyanosis or clubbing. No pitting in the bilateral lower extremities. NEUROLOGIC: Grossly nonfocal. LABORATORY DATA: Lactate 5.3. Other laboratories were not performed. Sputum, however, has E coli in it, which is pansensitive. IMAGING: Chest x-ray demonstrates endotracheal tube is in okay position, and catheter courses well below the level of the diaphragm. Diffuse interstitial lung markings are noted. This may be cardiogenic in nature. I do not see the bilateral diaphragm suggesting there could be some layering effusion here. ASSESSMENT: 1. Acute hypoxic respiratory failure. 2. Widespread metastatic process, suspect lung primary. 3. Advanced liver disease, likely secondary to metastatic process. 4. Metabolic encephalopathy. 5. Pancytopenia. DISCUSSION AND PLAN: We will transition the patient over to comfort care measures. Once this is performed, if she continues to breathe on, we can transition her out of the ICU, but my suspicion is that given her level of support required, she will pass away very quickly. CRITICAL CARE TIME: 30 minutes. Job ID: [id number]
[2018-04-28] MEDS: Lorazepam 2 MG/ML VIAL SLOW IVP PRN (15:39)
--- NOTE | 2018-04-29 10:45 | PQF ---
DATE: 04-29-18 ATTN: DR. FAMILIA HEREDIA Please exercise your independent, professional judgment in responding to the clarification form. Clinical indicators are provided on the bottom of this form for your review Please check appropriate box(es): [ x ] Sepsis due to: (Aspiration Pna etc.) __GNR [ x] Severe sepsis with acute organ dysfunction of: __acute respiratory failure (Examples: respiratory failure, encephalopathy, other) [ ] Other diagnosis [ ] Unable to determine In addition, please specify: Present on Admission (POA): [ x ] Yes [ ] No [ ] Unable to determine For continuity of documentation, please document condition throughout progress notes and discharge summary. Thank You. CLINICAL INDICATORS - SIGNS / SYMPTOMS / LABS ER DX: HYPOKALEMIA, HYPOXIA, PLEURAL EFFUSION H&P: SOB, ABD PAIN, WEAKNESS, RECENTLY DIAGNOSED LUNG CANCER TO LIVER, REDUCED APPETITE PN DR. HEREDIA 04-26-18: CONFUSED, ACUTE RESPIRATORY FAILURE WITH HYPOXIA AND HYPERCAPNIA, PANCYTOPENIA ON DR. HEREDIA 04-28-18: PT STILL NOT DOING WELL ON VENT, ASPIRATION PNEUMONIA , ACUTE ON CHRONIC RESP FAILURE WITH HYPOXIA AND HYPERCAPNIA CONSULT NOTE DR. GIORDANO 04-28-18: ACUTE HYPOXIC RESP FAILURE, WIDESPREAD METASTATIC PROCESS, SUSPECT LUNG PRIMARY, ADVANCED LIVER DISEASE, METABOLIC ENCEPHALOPATHY , PANCYTOPENIA WBC: 04-26-18: 4.2 04-27-18: 3.3 LACTIC ACIDOSIS: 04-28-18: 5.3 TEMP: 04-28-18: 100.7, 101.9, 100.7 PULSE: 04-26-18: 105, 109 04-27-18: 105 04-28-18: 105, 116, 114 RR: 04-26-18: 34, 28, 21, 24, 28, 24 RISK FACTORS: CONSULT NOTE DR. GIORDANO 04-28-18: ACUTE HYPOXIC RESP FAILURE, WIDESPREAD METASTATIC PROCESS, SUSPECT LUNG PRIMARY, ADVANCED LIVER DISEASE, METABOLIC ENCEPHALOPATHY, PANCYTOPENIA TREATMENTS: ICU MAR: PEREZ BURT (This form is maintained as a part of the permanent medical record) 2014 [employer] All Rights Reserved [email or web address] Office: [phone] [facility]
--- NOTE | 2018-04-29 14:33 | DIS ---
DATE OF ADMISSION: 04/25/2018 DATE OF DISCHARGE: 04/28/2018 PRIMARY CARE PHYSICIAN: Agustin Madera. DATE AND TIME OF : April 28, 2018, at 1545. PRIMARY CAUSE OF : 1. Acute respiratory failure with hypoxia and hypercapnia. 2. Acute metabolic encephalopathy. 3. Severe sepsis with multiorgan dysfunction. 4. Aspiration pneumonia due to Escherichia coli and Moraxella catarrhalis. 5. Metastatic primary lung cancer. CONTRIBUTING DIAGNOSES: 1. Hypertension. 2. Tobacco abuse disorder. 3. Mitral regurgitation. PRIMARY PROCEDURE/OPERATION: 1. Endotracheal intubation. 2. Radiological investigation. 3. CT angio. 4. Echocardiography. 5. Abdominal ultrasound. HOSPITAL SUMMARY: A 47-year-old female who has ongoing tobacco and alcohol abuse who presented to emergency room with increasing shortness of breath. The patient was recently diagnosed with metastatic lung cancer. While in hospital, the patient's respiratory status was deteriorated, required intubation. The patient had aspiration and had sputum culture grew E coli and Moraxella catarrhalis. The patient's prognosis was extremely poor given advanced metastatic lung cancer and family member decided to make her comfortable and DNR. The patient was terminally extubated and the patient was at 1545. Body was released for . Job ID: [id number]
== END 2018-04-28 15:45 | disposition expired | DRG 871 ==
LOC: ERS 13:28 → ERHOLD 15:38 → 2NO 04-26 12:33 → CCU 04-26 17:18
PROVIDERS: ADMIT Internal Medicine; ATTEND Internal Medicine
PROC: 5A1945Z Respiratory Ventilation, 24-96 Consecutive Hours (ICD-10-PCS; principal; 2018-04-26)
PROC: 0BH17EZ Insertion of Endotracheal Airway into Trachea, Via Natural or Artificial Opening (ICD-10-PCS; 2018-04-26)
DX: A41.50 Gram-negative sepsis, unspecified (principal); G93.41 Metabolic encephalopathy; J96.22 Acute and chronic respiratory failure with hypercapnia; J96.21 Acute and chronic respiratory failure with hypoxia; J69.0 Pneumonitis due to inhalation of food and vomit; C34.91 Malignant neoplasm of unspecified part of right bronchus or lung; C78.7 Secondary malignant neoplasm of liver and intrahepatic bile duct; D61.818 Other pancytopenia; R18.8 Other ascites; C77.1 Secondary and unspecified malignant neoplasm of intrathoracic lymph nodes; R65.20 Severe sepsis without septic shock; Z66 Do not resuscitate; Z51.5 Encounter for palliative care; B96.20 Unspecified Escherichia coli [E. coli] as the cause of diseases classified elsewhere; E87.6 Hypokalemia; K59.00 Constipation, unspecified; E86.0 Dehydration; R13.10 Dysphagia, unspecified; I34.0 Nonrheumatic mitral (valve) insufficiency; F31.9 Bipolar disorder, unspecified; F20.9 Schizophrenia, unspecified; F41.8 Other specified anxiety disorders; M79.669 Pain in unspecified lower leg; F17.290 Nicotine dependence, other tobacco product, uncomplicated
CPT/HCPCS: 36415; 71045; 71275; 76705; 80053; 81001; 81025; 82140; 82607; 82746; 82805; 83605; 83735; 85025; 85610; 87070; 87077; 87186; 87205; 93306; 93970; 94002; 94003; 94640; 94660; 94760; 96365; 96366; 96375; 96376; J1885; J2060; J2250; J2270; J2543; J2704; J2920; J3010; J3480; J7050; J7620; Q0175; Q9966; S0028